=== PATIENT | female | born 1990 | race African-American/Black ===

== ENCOUNTER 2017-05-19 02:20 | Emergency (ER) | payer MEDICAID ==
[~2017-05-19] VITALS: Ht 160 cm; Wt 89.1 kg
[2017-05-19 02:30] VITALS: BP 115/69
--- NOTE | 2017-05-19 02:40 | NUR ---
1ST CALL IN ER [facility] N/A
--- NOTE | 2017-05-19 02:45 | NUR ---
2ND CALL IN ER [facility] N/A
--- NOTE | 2017-05-19 02:51 | NUR ---
3RD CALL ER [facility] N/A PATIENT LEFT WITHOUT BEING SEEN BY DR. BORRERO. NO FURTHER CARE PROVIDED FOR PATIENT.
== END 2017-05-19 02:40 | disposition left against medical advice (07) ==
LOC: MED 02:20
DX: R51 Headache (principal); Z53.21 Procedure and treatment not carried out due to patient leaving prior to being seen by health care provider

== ENCOUNTER 2017-05-19 04:20 | Emergency (ER) | payer MEDICAID ==
[~2017-05-19] VITALS: Ht 160 cm; Wt 87.5 kg
[2017-05-19 04:29] VITALS: BP 126/55
--- NOTE | 2017-05-19 04:31 | NUR ---
PT AMBULATED TO OF
--- NOTE | 2017-05-19 04:32 | NUR ---
PATIENT IS A 27 Y/O FEMALE WHO PRESENTS TO THE ED C/O CONGESTION. PT STATES, "MY HEAD HAS BEEN HURTING FOR ABOUT 5 DAYS NOW." PT REPORTS 7/10 PRESSURE HEADACHE PAIN THAT DOES NOT RADIATE. PT DENIES CP, SOB, N/V/D. PT AAOX4, RR EVEN/UNLABORED. PT REPOSITIOEND FOR COMFORT, PT SITTING IN CHAIR. ER MD DR. BORRERO NOTIFIED. WILL CONTINUE TO MONITOR.
[2017-05-19 04:52] VITALS: BP 135/82
--- NOTE | 2017-05-19 04:52 | NUR ---
Patient discharged with v/s stable. Written and verbal after care instructions given and explained. Patient alert, oriented and verbalized understanding of instructions. Ambulatory with steady gait. All questions addressed prior to discharge. ID band removed. Patient advised to follow up with PMD. Rx of CODEINE PHOSPHATE/PROMETHAZINE HYDROCHLORIDE 10MG-6.25ML/5ML AND VENTOLIN HFA 90MCG given. Patient educated on indication of medication including possible reaction and side effects. Opportunity to ask questions provided and answered.
== END 2017-05-19 04:52 | disposition home or self-care (01) ==
LOC: MED 04:20
DX: J06.9 Acute upper respiratory infection, unspecified (principal); F17.210 Nicotine dependence, cigarettes, uncomplicated
CPT/HCPCS: 99283